=== PATIENT | female | born 1940 | race Native Hawaiian/Other Pacific Islander ===

== ENCOUNTER 2020-08-17 18:40 | Emergency (ER) | payer OTHER ==
[~2020-08-17] VITALS: Ht 167.6 cm; Wt 88.5 kg
[2020-08-17 20:19] LABS: POTASSIUM 4.7 mmol/L (3.6-5.2)
[2020-08-17 20:21] LABS: PLATELET COUNT 358 K/uL (152-353)
[2020-08-17 20:58] VITALS: BP 162/70; TEMP 98.8
[2020-08-17] MEDS ORDERED: ASPIRIN LOW DOS81 MG PO (22:07)
[2020-08-17] MEDS ORDERED: VITAMIN D350000 UNIT PO (22:09)
[2020-08-17] MEDS ORDERED: CARV12.5 PO (22:23)
[2020-08-17] MEDS ORDERED: DECUBI-VITE PO (22:24)
[2020-08-17] MEDS ORDERED: DEPAKOTE DR PO (22:25)
[2020-08-17] MEDS ORDERED: HYDRALAZINE50 MG PO (22:26)
[2020-08-17] MEDS ORDERED: IPRATROPIUM/ INH (22:28)
[2020-08-17] MEDS ORDERED: LANTUS SOL100 UNIT/M SC (22:28)
[2020-08-17] MEDS ORDERED: TIROSINT150 MCG PO (22:29)
[2020-08-17] MEDS ORDERED: LEXAPRO10 MG PO (22:30)
[2020-08-17] MEDS ORDERED: MUCINEX ER PO (22:32)
[2020-08-17] MEDS ORDERED: NOVOLOG FL100 UNIT/M SC ×2 (22:33→22:34)
[2020-08-17] MEDS ORDERED: OXYC5TAB24 PO ×2 (22:37)
[2020-08-17] MEDS ORDERED: POLYETHYLE17 GM/SCO1 PO (22:38)
[2020-09-03] MEDS ORDERED: ARIPIPRAZOLE10 MG PO (09:17)
[2020-09-03] MEDS ORDERED: BUSP5TAB2 PO (09:17)
[2020-09-03] MEDS ORDERED: DIVA125C PO (09:19)
[2020-09-03] MEDS ORDERED: MELATONIN MAXIMU5 MG PO (09:20)
[2020-09-03] MEDS ORDERED: ESCI10TA PO (09:20)
[2020-09-03] MEDS ORDERED: PANTOPRAZOLE 40MG TA PO (09:21)
[2020-09-03] MEDS ORDERED: ONDA4TAB3 PO (09:21)
[2020-09-03] MEDS ORDERED: NITR0.4S SL (09:22)
[2020-09-03] MEDS ORDERED: FURO20TA67 PO (09:23)
== END 2020-08-17 21:00 | disposition still patient (30) ==
LOC: ED 18:40
PROVIDERS: Hospitalist
DX: F03.91 Unspecified dementia, unspecified severity, with behavioral disturbance (principal); Z72.811 Adult antisocial behavior; Z11.59 Encounter for screening for other viral diseases; Z04.6 Encounter for general psychiatric examination, requested by authority
CPT/HCPCS: 80053; 85027; 87635; 93005; 99283; U0003